=== PATIENT | female | born 1975 | race Asian ===

== ENCOUNTER 2017-05-18 10:55 | Outpatient (CLI) | payer OTHER | END 2017-05-18 12:00 | disposition home or self-care (01) | LOC: MAMMO 10:55 | DX: Z12.31 Encounter for screening mammogram for malignant neoplasm of breast (principal) | CPT/HCPCS: G0202-TC ==

== ENCOUNTER 2017-06-09 10:38 | Outpatient (CLI) | payer OTHER | END 2017-06-09 19:31 | disposition home or self-care (01) | LOC: MAMMO 10:38 | DX: R92.8 Other abnormal and inconclusive findings on diagnostic imaging of breast (principal) | CPT/HCPCS: G0206-TC ==

== ENCOUNTER 2018-07-03 14:45 | Outpatient (CLI) | payer OTHER | END 2018-07-03 23:24 | disposition home or self-care (01) | LOC: MAMMO 14:45 | DX: Z12.31 Encounter for screening mammogram for malignant neoplasm of breast (principal) ==

== ENCOUNTER 2019-08-16 09:12 | Outpatient (CLI) | payer OTHER | END 2019-08-16 23:28 | disposition home or self-care (01) | LOC: LABW 09:12 | DX: B35.3 Tinea pedis (principal) | CPT/HCPCS: 36415; 84450; 84460 ==

== ENCOUNTER 2019-11-07 08:51 | Outpatient (CLI) | payer OTHER | END 2019-11-07 20:48 | disposition home or self-care (01) | LOC: LABW 08:51 | DX: B35.1 Tinea unguium (principal) | CPT/HCPCS: 36415; 84450; 84460 ==

== ENCOUNTER 2020-07-03 11:15 | Outpatient (CLI) | payer OTHER | END 2020-07-03 23:09 | disposition home or self-care (01) | LOC: LAB 11:15 | DX: K64.0 First degree hemorrhoids (principal) | CPT/HCPCS: 82272 ==

== ENCOUNTER 2022-05-10 10:08 | Emergency (ER) | payer OTHER ==
[~2022-05-10] VITALS: Ht 157.5 cm; Wt 77.1 kg
[2022-05-10] MEDS ORDERED: KETO10TA34 PO (11:00)
[2022-05-10] MEDS ORDERED: PREDNISONE20 MG PO (11:00)
[2022-05-10 11:09] VITALS: BP 123/79; TEMP 98.1
== END 2022-05-10 11:09 | disposition home or self-care (01) ==
LOC: ED 10:08
DX: M77.8 Other enthesopathies, not elsewhere classified (principal)
CPT/HCPCS: 99281